=== PATIENT | male | born 1975 | race Caucasian/White ===

== ENCOUNTER 2017-02-14 23:08 | Emergency (ER) | payer OTHER ==
[2017-02-14 23:14] VITALS: BP 150/76; TEMP 97; BMI 31.0
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
[2017-02-15] MEDS: DILAUDID 1 MG/ML SYRINGE IM STA (00:16)
[2017-02-15] MEDS: NORFLEX IM STA (00:17)
[2017-02-15] MEDS: TORADOL IM STA (00:17)
[2017-02-15] MEDS: NORCO 10-325 PO STA (00:26)
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
== END 2017-02-15 01:09 | disposition home or self-care (01) ==
LOC: ED 23:08
DX: M54.5 Low back pain (principal); F17.210 Nicotine dependence, cigarettes, uncomplicated; X50.0XXA Overexertion from strenuous movement or load, initial encounter; W01.0XXA Fall on same level from slipping, tripping and stumbling without subsequent striking against object, initial encounter
CPT/HCPCS: 99283

== ENCOUNTER 2017-07-09 22:49 | Emergency (ER) | payer OTHER ==
[2017-07-09 23:06] VITALS: BP 153/64; TEMP 97.9; BMI 30.6
--- NOTE | 2017-07-09 23:08 | ED.PDOC ---
General ED Provider: Dr. COLIN ANNA-ER Chief Complaint: Extremity Swelling/Pain Stated Complaint: i got pain in my leg when i went to [facility]--im worried about a blood clot Time Seen by Physician: 22:55 Mode of Arrival: Walk-In Information Source: Patient, Family Exam Limitations: No limitations Primary Care Provider: RODRÍGUEZ COYLE Nursing and Triage Documentation Reviewed and Agree: Yes Reviewed sepsis parameters & appropriate labs ordered?: Yes System Inflammatory Response Syndrome: Not Applicable Sepsis Protocol: For patient's 13 years and over: Temp is 96.8 and below OR 101 and greater Pulse >90 BPM Resp >20/minute Acutely Altered Mental Status Are patient's symptoms suggestive of a new infection, such as: -Pneumonia -Skin, Soft Tissue -Endocarditis -UTI -Bone, Joint Infection -Implantable Device -Acute Abdominal Infection -Wound Infection -Meningitis -Blood Stream Catheter Infection -Unknown Musculoskeletal Complaint Exam - Lower Extremity Complaint/Exam Location of Pain: Reports: Right Mechanism of Injury: Reports: No known trauma Onset/Duration: several days Symptoms Are: Still present Onset of Pain: Reports: Immediate Initial Severity: Mild Current Severity: Moderate Location: Reports: Discrete (right lower extremity) Character: Reports: Dull, Aching, Throbbing Alleviating: Reports: Rest Aggravating: Reports: Movement, Weight bearing, Prolonged standing Able to Bear Weight: Yes Associated Signs and Symptoms: Denies: Swelling, Redness, Bruising, Fever, Weakness, Numbness, Tingling NV Bundle Intact Distal to Injury: Yes Compartment Syndrome Risk Factors: Present: Pain Rogers's Sign Present: No Differential Diagnoses: Contusion, DVT, Fracture, Strain, Sprain Review of Systems - Review Of Systems Constitutional: Reports: No symptoms Eyes: Reports: No symptoms Ears, Nose, Mouth, Throat: Reports: No symptoms Respiratory: Reports: No symptoms Cardiac: Reports: No symptoms GI: Reports: No symptoms : Reports: No symptoms Musculoskeletal: Reports: Muscle pain Skin: Reports: No symptoms Neurological: Reports: No symptoms Endocrine: Reports: No symptoms Hematologic/Lymphatic: Reports: No symptoms All Other Systems: Reviewed and Negative Past Medical History - Past Medical History Previously Healthy: No Endocrine: Reports: Unknown Cardiovascular: Reports: Unknown Respiratory: Reports: Unknown Hematological: Reports: Unknown Gastrointestinal: Reports: Unknown Genitourinary: Reports: Unknown Neuro/Psych: Reports: Unknown Musculoskeletal: Reports: Unknown Cancer: Reports: Unknown - Surgical History General Surgical History: Reports: Unknown - Family History Family History: Reports: Unknown - Social History Smoking Status: Current every day smoker, Heavy tobacco smoker Hx Substance Use: No Alcohol Screening: Occasionally - Immunizations Tetanus Shot up to Date: Yes Physical Exam - Physical Exam Appearance: Well-appearing, No pain distress, Well-nourished Eyes: NORBERTO, EOMI, Conjunctiva clear ENT: Ears normal Neck: Supple Respiratory: Airway patent, Breath sounds clear, Breath sounds equal, Respirations nonlabored Cardiovascular: RRR, Pulses normal, No rub, No murmur GI/: Soft Musculoskeletal: Limited ROM Skin: Warm, Dry, Normal color Neurological: Sensation intact, Motor intact, Reflexes intact, Cranial nerves intact, Alert, Oriented Psychiatric: Affect appropriate, Mood appropriate Critical Care Note - Critical Care Note Total Time (mins): 0 Course - Course Orders, Labs, Meds: i explained we didnt have vascular u/s tonight--he is worried about blood clot which is reasonable--he didnt want to wait for xrays or u/s and wanted to leave- -i offered to transfer him to another facility but he declines--he decided to leave AMA) Vital Signs: Temp Pulse Resp BP Pulse Ox 07/09/17 22:49 97.9 F 79 20 153/64 H 97 Departure - Departure Time of Disposition: 23:09 Disposition: AMA Discharge Problem: Leg pain Qualifiers: Laterality: right Qualified Code(s): M79.604 - Pain in right leg Condition: Good Pt referred to PMD for follow-up: Yes IPMP verified?: No Additional Instructions: return prn Allergies/Adverse Reactions: Allergies Penicillins Adverse Reaction (Verified 07/09/17 22:59) Hives Sulfa (Sulfonamide Antibiotics) Adverse Reaction (Verified 07/09/17 22:59) Unknown Home Medications: Ambulatory Orders 1 [No Reported Medications] 02/14/17 Disposition Discussed With: Patient, Family
== END 2017-07-09 23:10 | disposition left against medical advice (07) ==
LOC: ED 22:49
DX: M79.604 Pain in right leg (principal); F17.210 Nicotine dependence, cigarettes, uncomplicated
CPT/HCPCS: 99281

== ENCOUNTER 2017-07-10 13:26 | Emergency (ER) | payer OTHER ==
[2017-07-10 13:33] VITALS: BP 161/94; TEMP 98.2; BMI 30.5
--- NOTE | 2017-07-10 14:33 | US ---
EXAM: The right lower extremity venous Doppler HISTORY: Concern for DVT with 3 days of tenderness. COMPARISON: None TECHNIQUE: Sonographic and Doppler evaluation of the right lower extremity vessels from the common f emoral through the anterior tibial veins were obtained. Augmentation and compression techniques were also performed. FINDINGS: There is spontaneous Doppler flow seen in the right lower extremity veins from the common femoral through the anterior tibial veins. There is normal compression and augmentation throughout t he lower extremity veins. There is no visualized reflux. Sonographic appearance of the soft tissues are unremarkable. IMPRESSION: No right lower extremity thrombus
--- NOTE | 2017-07-10 14:41 | CT ---
EXAM: CT abdomen pelvis without contrast HISTORY: Abdominal pain COMPARISON: CT pelvis 02/14/2017 TECHNIQUE: Serial axial images of the abdomen pelvis were performed from the lung bases through the inferior pelvis without contrast. These were viewed in multiple planes. FINDINGS: Lungs are clear Evaluation is limited due to lack of contrast. The liver is unremarkable. The gallbladder is contra cted. Kidneys are normal. The adrenal glands are unremarkable. The spleen is unremarkable. The pa ncreas is unremarkable. The stomach is distended. Small bowel in the abdomen pelvis is unremarkable. The appendix is normal. The colon is unremarkabl e. Urinary bladder is distended. The prostate is unremarkable. There is no free air, free fluid or lymphadenopathy. The osseous structures are unremarkable. IMPRESSION: 1. No acute intra-abdominal or pelvic process to account for patient's symptoms. 2. The appendix is normal.
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
== END 2017-07-10 15:10 | disposition home or self-care (01) ==
LOC: ED 13:26
DX: M79.604 Pain in right leg (principal); R10.31 Right lower quadrant pain; F17.210 Nicotine dependence, cigarettes, uncomplicated
CPT/HCPCS: 36415; 80053; 85025; 99283